=== PATIENT | female | born 1990 | race Caucasian/White ===

== ENCOUNTER 2021-10-13 15:40 | Emergency (ER) | payer MEDICAID, SELFPAY ==
[2021-10-13 15:48] VITALS: BP 135/76; PULSE 87; RESP 16; TEMP 37.2; O2SAT 99; BMI 20.7
--- NOTE | 2021-10-13 16:11 | XRR_ITS ---
PROCEDURE INFORMATION: Exam: XR Thoracic Spine Exam date and time: 10/13/2021 4:21 PM Age: 30 years old Clinical indication: Injury or trauma; Fall; Blunt trauma (contusions or hematomas) TECHNIQUE: Imaging protocol: XR of the thoracic spine. Views: 3 views. COMPARISON: No relevant prior studies available. FINDINGS: Bones/joints: Normal. No acute fracture. Normal alignment. Soft tissues: Unremarkable. XR/XR thoracic spine 2V [id number] IMPRESSION: No acute findings.
--- NOTE | 2021-10-13 16:11 | XRR_ITS ---
PROCEDURE INFORMATION: Exam: XR Lumbosacral Spine Exam date and time: 10/13/2021 4:21 PM Age: 30 years old Clinical indication: Injury or trauma; Fall; Blunt trauma (contusions or hematomas) TECHNIQUE: Imaging protocol: XR of the lumbosacral spine. Views: 2 or 3 views. COMPARISON: No relevant prior studies available. FINDINGS: Bones/joints: Normal. No acute fracture. Normal alignment. Soft tissues: Unremarkable. XR/XR lumbar spine 2-3V* [id number] IMPRESSION: No acute findings.
--- NOTE | 2021-10-13 16:12 | ED_ITS ---
HPI - Back Pain/Injury General: Chief Complaint: Back Pain/Injury Stated Complaint: fell on 10/10/severe back pain Time Seen by Provider: 10/13/21 15:54 Source: patient and family Mode of arrival: ambulatory Limitations: no limitations History of Present Illness: This patient states that she fell 3 days ago. She states that she was walking down the stairs which were wet and slipped falling backwards striking her lower and mid back on the steps and then down to the landing. She states she fell and slid approximately 3 stairs. She states she did not hit her head or suffer a loss of consciousness. She is states that she suffered some superficial abrasions to the skin of her lower back as well as her right arm. She states that she has had more pain over the last 24 hours in her mid and lower back region. She denies any weakness or numbness. She states she gets some electricity type feelings for lack of a better description along her right arm and right soft tissue of her back. She denies any change in her symptoms with taking deep breaths etc. She states she is not had any other symptoms such as fevers chills loss of bowel bladder control etc. She again denies any other injury at this time. MD elicited complaint: back pain, back injury and fall Timing: intermittent Quality: burning, aching and spasming Location: lumbar spine and thoracic spine Associated symptoms: Deny abdominal pain, chills, dysuria, fever(s), hematuria, nausea or vomiting Review of Systems Const: Denies: fever(s), chills, body aches or change in appetite Eyes: Denies: change in vision or blurry vision ENMT: Denies: throat pain or odynophagia Card: Denies: chest pain, palpitations or irregular heart rhythm Resp: Denies: dyspnea, productive cough or non-productive cough GI: Denies: abdominal pain, nausea or vomiting : Denies: flank pain, difficulty voiding, dysuria, urinary frequency or hematuria Musc: Reports: back pain; Denies: extremity pain or extremity swelling Skin/Breast: Denies: rash, pruritus, erythema or skin pain Neuro: Denies: headache(s), numbness in extremities or weakness in extremities Nick/Lymph: Denies: easy bruising or easy bleeding FOR[facility]LY [facility], [facility] ED Female Reproductive History: Date of last menstrual period: 10/07/21 Physical Exam Narrative: EXAM NARRATIVE: Patient makes good eye contact speech is goal-directed. Const: COMMON NORMALS: no acute distress, average body habitus, patient oriervin casey x3, healthy appearing and alert GENERAL APPEARANCE: cooperative and comfortable HENMT: COMMON NORMALS: normocephalic and atraumatic HEAD & SCALP: normocephalic and atraumatic FACE & SINUS: normal facial exam Eye: COMMON NORMALS: Equal, round and reactive pupils present and EOMs intact bilaterally PUPIL: Yes Equal, round and reactive pupils present Neck/C-Spine: COMMON NORMALS: full ROM CERVICAL SPINE: No Cervical spine tenderness, No step off deformity, No Paracervical spasm and Yes Trapezius m uscle tenderness (Right greater than left) OTHER: She is able to side Melvin and rotate her head 45 degrees to the left and right. She is able to forward bend 15 degrees. No midline tenderness no step-off. Chest: COMMONS NORMALS: normal inspection of the chest and normal palpation of entire chest wall Resp: COMMON NORMALS: normal respiratory effort, No retractions and clear to auscultation bilaterally EFFORT & INSPECTION: Yes able to speak in complete sentences AUSCULTATION: clear to auscultation bilaterally Cardio: COMMON NORMALS: regular rate, regular rhythm, No murmurs present (Cardio) and Peripheral pulses 2+ throughout RATE: regular rate RHYTHM: regular rhythm PERIPHERAL PULSES: Peripheral pulses 2+ throughout GI: COMMON NORMALS: Soft to palpation and non-tender PALPATION: Yes Soft to palpation Back/Pelvis: THORACIC SPINE/UPPER BACK: Yes normal to inspection and Yes paraspinal muscle tenderness LUMBAR SPINE/LOWER BACK: Yes paraspinal muscle tenderness, Yes straight leg raise negative bilaterally and No bend over test abnormal PELVIS: Yes no pain with anterior-posterior compression and Yes no pain with lateral compression SACROILIAC JOINTS: Yes SI joints normal SACRUM: no ecchymosis and no tenderness OTHER: Axial spine is noted for some tenderness along the mid intrascapular region as well as tenderness at the lower thoracic upper lumbar region to palpation. She has a healing abrasion in the midline of the lumbar region. There is no other skin rashes ecchymosis etc. She is able to forward bend greater than 90 degrees without difficulty. She is able to rotate in normal ranges without difficulty but she has some increasing subjective symptoms with rotation to the right. Extremity: COMMON NORMALS: normal to inspection NARRATIVE EXTREMITY EXAM: She has a bandaged abrasion to her right forearm Neuro: COMMON NORMALS: patient oriented x3, moves all extremities, no focal motor deficits, no sensory deficits noted, deep tendon reflexes 2+ bilaterally and gait normal SENSORIUM/ORIENTATION: Yes alert CRANIAL NERVES: Yes CN normal except as noted Psych: COMMON NORMALS: mental status grossly normal and cooperative Course Vital Signs: Vital signs: Vital Signs Temperature 99.0 F 10/13/21 15:48 Pulse Rate 87 10/13/21 15:48 Respiratory Rate 16 10/13/21 15:48 Blood Pressure 135/76 10/13/21 15:48 Pulse Oximetry 99 10/13/21 15:48 MDM - Back Pain/Injury Medical Decision Making This young lady presented to the emergency room with a history of slip and fall with resultant back injury. Her clinical exam revealed evidence of soft tissue injury with some midline tenderness as well so therefore plain films were obtained given her body habitus these were thought to be accurate in this clinical scenario. Plain films are reassuring. She has no evidence at this time to suggest any more than soft tissue injury with resultant normal course and recovery. I spent significant amount of time discussing this with both she and her significant other. She apparently had taken some cyclobenzaprine which gave her no benefit as well as some Naprosyn that she had previously had. I advised that there is no evidence at this time that any additional muscle relaxants give any improved outcome and back pain. I did encourage her to continue with the naproxen with meals as well as using ice massage or cool packs to the areas of discomfort. Also advised if she develops worsening symptoms such as weakness numbness etc. she should be reevaluated or she does not have significant resolution all her symptoms by end of next week should she she should seek further evaluation. Both she and her significant other acknowledged her discussion. She is stable at this time for discharge. Labs Radiology Impressions Lumbar Spine X-Ray 10/13/21 16:11 IMPRESSION: No acute findings. Thoracic Spine X-Ray 10/13/21 16:11 IMPRESSION: No acute findings. Discharge Plan Discharge Patient Disposition: Home Clinical Impression: Back soft tissue injury Condition: Stable Discharge Orders: Discharge ED (Routine); Ordered 10/13/21 Ordered By: Abram Li Discharge Diet: Usual diet Discharge Activity: Increase activity as tolerated Patient Instructions: Muscle Spasm (ED), Opioid Safety Activity Restrictions/Additional Instructions: As we discussed you have no evidence at this time to suggest a serious injury however we expect your symptoms to continue to improve with use of naproxen, ice or cool packs to the area of discomfort and time over the next 5 to 7 days. If your symptoms do not improve by the end of next week or worsen at any time he should seek additional care. It is important to keep active continuing your usual activities of daily living. Coding Level of Care Code ED Tin Pot Operator for Tashi Fwd Exam Comprehensive
== END 2021-10-13 17:55 | disposition home or self-care (01) ==
PROVIDERS: Emergency Provider Emergency Medicine
DX: S39.002A Unspecified injury of muscle, fascia and tendon of lower back, initial encounter (principal); S29.002A Unspecified injury of muscle and tendon of back wall of thorax, initial encounter; W10.9XXA Fall (on) (from) unspecified stairs and steps, initial encounter
CPT/HCPCS: 72070; 72100; 99282